=== PATIENT | male | born 2005 | race Caucasian/White ===

== ENCOUNTER 2023-02-03 21:40 | Emergency (ER) | payer OTHER | END 2023-02-03 22:40 | disposition home or self-care (01) | LOC: FB.ED 21:40 | DX: S60.151A Contusion of right little finger with damage to nail, initial encounter (principal); W23.0XXA Caught, crushed, jammed, or pinched between moving objects, initial encounter; Y92.89 Other specified places as the place of occurrence of the external cause; Y99.0 Civilian activity done for income or pay | CPT/HCPCS: 73130-RT; 99283 ==